=== PATIENT | male | born 1990 | race Caucasian/White ===

== ENCOUNTER 2018-10-21 13:54 | Emergency (ER) | payer BC, SELFPAY ==
[2018-10-21] MEDS ORDERED: Metoprolol Tartrate 5 MG/5 ML VIAL ONE (14:18)
[2018-10-21] MEDS ORDERED: Aspirin Chewable 81 MG TAB ONE (14:18)
[2018-10-21 14:29] LABS: #Basophils 0.1 thou/uL (0.0-0.2); #Eosinphils 0.2 thou/uL (0.0-0.7); #Lymphocytes 2.5 thou/uL (1.20-3.40); #Monocytes 0.7 thou/uL (0.11-0.59); #Neutrophils 7.5 thou/uL (1.40-6.50); %Basophils 0.9 % (0.0-1.0); %Eosinophils 2.1 % (0.0-10.0); %Monocytes 6.2 % (0.0-10.0); %Neutrophils 67.8 % (42.0-75.0); Hemoglobin 15.4 g/dL (14.0-18.0); Mean Corpuscular HGB CONC 32.2 g/dL (32.0-36.0); Mean Corpuscular Volume 86.9 fL (78.0-98.0); Mean Platelet Volume 7.7 fL (7.4-10.4); Platelet Count 309 thou/uL (130-400); RBC Distribution Width 12.5 % (11.5-14.5); Red Blood Cell (RBC) Count 5.51 mill/uL (4.70-6.10)
--- NOTE | 2018-10-21 14:33 | RAD ---
2 VIEW CHEST: Date: 10/21/18 INDICATION: Chest pain. FINDINGS: Lungs appear clear. No infiltrate or vascular congestion. Heart and mediastinum unremarkable. IMPRESSION: No acute process identified. POS: [facility]
[2018-10-21 14:41] LABS: ALT (SGPT) 37 U/L (8-55); AST (SGOT) 22 U/L (5-34); Albumin 4.2 g/dL (3.5-5.0); Alkaline Phosphatase 77 U/L (40-150); Anion Gap 13 mmol/L (10-20); BUN (Urea Nitrogen) 12 mg/dL (8.9-20.6); Bilirubin, Total 0.4 mg/dL (0.2-1.2); Calc. Creatinine Clearance 0 mL/min (70-130); Calcium 9.3 mg/dL (7.8-10.44); Carbon Dioxide 25 mmol/L (22-29); Chloride 105 mmol/L (98-107); Estimated GFR-MDRD Greater than 90; Globulin 3.3 g/dL (2.4-3.5); Glucose 98 mg/dL (70-105); Lipase 27 U/L (8-78); Potassium 3.9 mmol/L (3.5-5.1); Protein, Total 7.5 g/dL (6.0-8.3); Sodium 139 mmol/L (136-145)
[2018-10-21] MEDS ORDERED: Nitroglycerin 50 MG/250 ML BOT 250 ML ONE (14:54)
[2018-10-21 15:19] LABS: Amphetamine Not Detected (NotDetected); Barbiturates Screen Not Detected (NotDetected); Benzodiazepine Screen Not Detected (NotDetected); Cocaine Metabolite Screen Not Detected (NotDetected); Medtox Control Line Valid? VALID (VALID); Methadone Not Detected (NotDetected); Methamphetamine Not Detected (NotDetected); Opiate Screen Not Detected (NotDetected); Oxycodone Screen Not Detected (NotDetected); Phencyclidine (PCP) Not Detected (NotDetected); THC/Cannabinoid Screen Not Detected (NotDetected); Tricyclic Screen Not Detected (NotDetected)
== END 2018-10-21 15:40 | disposition short-term general hospital (02) ==
LOC: MADERS 13:54
DX: I24.9 Acute ischemic heart disease, unspecified (principal); R03.0 Elevated blood-pressure reading, without diagnosis of hypertension; F17.210 Nicotine dependence, cigarettes, uncomplicated
CPT/HCPCS: 71046; 80053; 80306; 82553; 83605; 83690; 83880; 84484; 85025; 85379; 93005; 94760; 96374; 96375

== ENCOUNTER 2019-07-26 04:12 | Emergency (ER) | payer BC ==
[2019-07-26 04:49] LABS: #Eosinphils 0.1 thou/uL (0.0-0.7); #Lymphocytes 1.4 thou/uL (1.20-3.40); #Monocytes 0.4 thou/uL (0.11-0.59); #Neutrophils 10.8 thou/uL (1.40-6.50); %Basophils 0.4 % (0.0-1.0); %Eosinophils 0.5 % (0.0-10.0); %Lymphocytes 10.8 % (21.0-51.0); %Monocytes 3.3 % (0.0-10.0); Hemoglobin 14.5 g/dL (14.0-18.0); Mean Corpuscular HGB CONC 30.6 g/dL (32.0-36.0); Mean Corpuscular Volume 91.4 fL (78.0-98.0); Mean Platelet Volume 8.1 fL (7.4-10.4); Platelet Count 290 thou/uL (130-400); RBC Distribution Width 12.7 % (11.5-14.5); Red Blood Cell (RBC) Count 5.18 mill/uL (4.70-6.10); White Blood Cell (WBC) Count 12.7 thou/uL (4.8-10.8)
[2019-07-26 04:53] LABS: PTT 27.4 SEC (22.9-36.1); Prothrombin Time 12.7 SEC (12.0-14.7)
[2019-07-26 05:01] LABS: ALT (SGPT) 36 U/L (8-55); AST (SGOT) 23 U/L (5-34); Albumin 3.8 g/dL (3.5-5.0); Alcohol 127 mg/dL (Less than 10); Alkaline Phosphatase 74 U/L (40-110); Anion Gap 14 mmol/L (10-20); BUN (Urea Nitrogen) 8 mg/dL (8.9-20.6); Bilirubin, Total 0.3 mg/dL (0.2-1.2); Calc. Creatinine Clearance 0 mL/min (70-130); Carbon Dioxide 18 mmol/L (22-29); Chloride 116 mmol/L (98-107); Estimated GFR-MDRD 87; Globulin 2.2 g/dL (2.4-3.5); Glucose 204 mg/dL (70-105); Potassium 4.3 mmol/L (3.5-5.1); Sodium 144 mmol/L (136-145)
[2019-07-26] MEDS ORDERED: Adacel (T-DAP) 0.5 ML SYRINGE ONE (05:07)
--- NOTE | 2019-07-26 07:44 | CT ---
CT OF THE BRAIN WITHOUT CONTRAST: INDICATION: Fall with head injury. COMPARISON: None. FINDINGS: No acute infarct, hemorrhage, or hydrocephalus is present. Septum pellucidum and third ventricle are midline. There is mild mucosal thickening within the ethmoid air cells. Very small mucous retentio n cyst is seen within the right maxillary sinus. Mastoid air cells are clear. The skull is intact. IMPRESSION: No acute intracranial abnormality. POS: [facility]
--- NOTE | 2019-07-26 07:46 | RAD ---
CHEST 1 VIEW: INDICATION: History of chest pain. COMPARISON: Prior exam dated 10/21/2018. FINDINGS: Lungs are clear. Heart size is normal. No pleural effusion or pneumothorax is evident. No acute os seous abnormality is noted. IMPRESSION: No acute cardiopulmonary abnormality. POS: [facility]
--- NOTE | 2019-07-26 07:46 | RAD ---
RIGHT HAND 3 VIEWS: INDICATION: Right hand injury. COMPARISON: None. FINDINGS: Thee is soft tissue swelling involving the dorsal aspect of the right hand. No acute fracture or sub luxation is evident. IMPRESSION: No acute osseous abnormality. POS: [facility]
== END 2019-07-26 05:57 | disposition left against medical advice (07) ==
LOC: MADERS 04:12
DX: S00.83XA Contusion of other part of head, initial encounter (principal); S60.221A Contusion of right hand, initial encounter; R07.9 Chest pain, unspecified; I25.2 Old myocardial infarction; F17.210 Nicotine dependence, cigarettes, uncomplicated; Z23 Encounter for immunization; Z79.899 Other long term (current) drug therapy; Z79.84 Long term (current) use of oral hypoglycemic drugs; Z79.82 Long term (current) use of aspirin; W01.198A Fall on same level from slipping, tripping and stumbling with subsequent striking against other object, initial encounter
CPT/HCPCS: 70450; 71046; 80053; 80307; 84484; 85025; 85610; 85730; 90471; 90715; 93005